=== PATIENT | female | born 1970 | race American Indian/Alaskan Native ===

== ENCOUNTER 2019-01-14 18:10 | Observation (INO) | payer SELFPAY ==
[2019-01-14 18:21] VITALS: BMI 36.8
[2019-01-14] MEDS ORDERED: Sodium Chloride 0.9% 1,000 ML IV STA (18:35)
[2019-01-14 19:09] LABS: BASO # 0.04 K/mm3 (0.0-2.0); BASO % 0.5 % (0.0-3.0); EOS # 0.3 (0.0-0.7); HEMOGLOBIN 12.8 g/dL (12.0-16.0); LYMPH # 2.9 (1.2-3.4); LYMPH % 35.4 % (22.0-35.0); MEAN CELL VOLUME 91.7 fl (80.0-105.0); MEAN CORPUSCULAR HEMOGLOBIN 30.5 pg (25.0-35.0); MEAN CORPUSCULAR HGB CONC 33.2 g/dl (31.0-37.0); MEAN PLATELET VOLUME 9.5 fl (7.0-11.0); MONO # 0.7 (0.1-0.6); MONO % 8.7 % (1.0-6.0); RBC 4.2 10^6/uL (3.5-6.1); WHITE BLOOD COUNT 8.1 10^3/uL (4.5-11.0)
[2019-01-14 19:13] LABS: INR 1.07; PARTIAL THROMBOPLASTIN TIME 31.8 Seconds (26.9-38.3); PROTHROMBIN TIME 11.9 SECONDS (9.4-12.5)
--- NOTE | 2019-01-14 19:27 | ED PDOC ---
Arrival/HPI - General Chief Complaint: Cough, Cold, Congestion Time Seen by Provider: 01/14/19 18:22 Historian: Patient - History of Present Illness Narrative History of Present Illness (Text): 48 y/o female with PMH of anxiety, PTSD, HTN and sinusitis presents to the ED c/o left sided facial and scalp paresthesias x 2 days. Beginning 2 days ago, pt began with a "tingling and fullness" that starts in the posterior left scalp and wraps around to the front of the left side of her face. Paresthesias were constant 2 days ago and have been intermittent since, and have been decreasing in frequency. She has had symptoms like this in the past on the right side of the face when she had sinus infections but they have never lasted this long. Denies weakness, leg or arm symptoms, difficulty speaking, headache, visual changes, dizziness, nausea, vomiting, abdominal pain, chest pain, palpitations, SOB, or any other associated symptoms. Past Medical History - Provider Review Nursing Documentation Reviewed: Yes Primary Care Provider: Tracy Mariscal V - Infectious Disease Hx of Infectious Diseases: None - Tetanus Immunization Tetanus Immunization: Unknown - Past Medical History Past Medical History: No Previous - Cardiac Hx Hypertension: Yes - Pulmonary Hx Respiratory Disorders: No - Neurological Hx Neurological Disorder: No - HEENT Hx HEENT Disorder: No - Renal Hx Renal Disorder: No - Endocrine/Metabolic Hx Endocrine Disorders: No - Hematological/Oncological Other/Comment: allergic to things above, gets allergy injections 2 x weekly - Integumentary Hx Dermatological Disorder: No - Musculoskeletal/Rheumatological Hx Musculoskeletal Disorders: No - Gastrointestinal Hx Gastrointestinal Disorders: No - Genitourinary/Gynecological Hx Genitourinary Disorders: No - Psychiatric Hx Psychophysiologic Disorder: No Hx Substance Use: No - Suicidal Assessment Feels Threatened In Home Enviroment: No Family/Social History - Physician Review Nursing Documentation Reviewed: Yes Family/Social History: No Known Family HX Smoking Status: Former Smoker Hx Alcohol Use: No Hx Substance Use: No Allergies/Home Meds Allergies/Adverse Reactions: Allergies cat dander Allergy (Verified 01/14/19 18:22) CONGESTION dog dander Allergy (Verified 01/14/19 18:22) CONGESTION mold Allergy (Verified 01/14/19 18:22) CONGESTION pollen extracts Allergy (Verified 01/14/19 18:22) CONGESTION dust Allergy (Uncoded 01/14/19 18:22) CONGESTION Home Medications: Home Meds Medication Instructions Recorded Confirmed Olmesartan [BenicarNf] 40 mg PO DAILY 01/15/19 01/15/19 Review of Systems - Review of Systems Constitutional: Normal. absent: Fevers Eyes: Normal. absent: Vision Changes, Photophobia ENT: Rhinorrhea, Sinus Congestion Respiratory: Normal. absent: SOB, Cough Cardiovascular: Normal. absent: Chest Pain, Palpitations, Syncope Gastrointestinal: Normal. absent: Abdominal Pain, Nausea, Vomiting Genitourinary Female: Normal. absent: Dysuria, Frequency Musculoskeletal: Normal. absent: Back Pain, Neck Pain Skin: Normal. absent: Rash, Skin Lesions Neurological: Other (left face and scalp paresthesias). absent: Headache, Dizziness, Focal Weakness, Gait Changes, Speech Changes, Facial Droop, Seizure Psychiatric: Anxiety. absent: Depression, Suicidal Ideation Physical Exam Vital Signs Reviewed: Yes Vital Signs Temp Pulse Resp BP Pulse Ox 01/14/19 18:22 98 F 68 18 165/95 H 100 Temperature: Afebrile Blood Pressure: Hypertensive Pulse: Regular Respiratory Rate: Normal Appearance: Positive for: Well-Appearing, Non-Toxic, Comfortable Pain Distress: None Mental Status: Positive for: Alert and Oriented X 3 - Systems Exam Head: Present: Atraumatic, Normocephalic Pupils: Present: PERRL Extroacular Muscles: Present: EOMI Conjunctiva: Present: Normal Ears: Present: Normal, NORMAL TM, Normal Canal Mouth: Present: Moist Mucous Membranes Pharnyx: Present: Normal. No: ERYTHEMA, EXUDATE, TONSILS ENLARGED, Other (no tongue deviation) Neck: Present: Normal Range of Motion. No: Meningeal Signs Respiratory/Chest: Present: Clear to Auscultation, Good Air Exchange. No: Respiratory Distress, Accessory Muscle Use Cardiovascular: Present: Regular Rate and Rhythm, Normal S1, S2, Peripheal Pulses Present Abdomen: No: Tenderness Back: Present: Normal Inspection. No: CVA Tenderness Upper Extremity: Present: Normal Inspection, Normal ROM, NORMAL PULSES, Neurovascularly Intact, Capillary Refill < 2s. No: Cyanosis, Edema, Temperature Abnormalties Lower Extremity: Present: Normal Inspection, NORMAL PULSES, Normal ROM, Neurovascularly Intact, Capillary Refill < 2 s. No: Edema, Temperature Abnormalties Neurological: Present: GCS=15, CN II-XII Intact, Speech Normal, Motor Func Grossly Intact (Strength 5/5 bilaterally in all extremities), Normal Sensory Function (Sensation intact and equal to light touch throughout, including face), Normal Cerebellar Funct, Gait Normal, Other ((-) Romberg (-) Facial droop) Skin: Present: Warm, Dry, Normal Color. No: Rashes, Diaphoretic, Erythematous, Laceration, Abrasion Lymphatic: No: Cervical Adenopathy Psychiatric: Present: Alert, Oriented x 3, Normal Insight, Normal Concentration, Normal Affect, Normal Mood Medical Decision Making ED Course and Treatment: Initial Plan: * Labs * UA * Head CT * CXR * EKG * IVF 19:26 Repeat BP 144/78. 19:34 CBC reviewed, unremarkable. No anemia or leukocytosis 20:04 Patient care endorsed to GUICHO Evangelista pending CMP, thyroid studies, UA, CT and XR read, reassessment and disposition. Pt updated with change in provider. Resting comfortably in stretcher with stable vital signs at this time. - Lab Interpretations Lab Results: PT 11.9 SECONDS (9.4-12.5) 01/14/19 19:00 INR 1.07 01/14/19 19:00 APTT 31.8 Seconds (26.9-38.3) 01/14/19 19:00 I have reviewed the lab results: Yes - RAD Interpretation Radiology Orders: 01/14/19 18:34 HEAD W/O CONTRAST [CT] Stat 01/14/19 19:16 CHEST PORTABLE [RAD] Stat - EKG Interpretation EKG Interpretation (Text): 01/14/19 19:54 Rate 52; Sinus bradycardia; Normal intervals and axis; No STEMI or other signs of acute ischemia. Interpreted by ED Physician: Yes Type: 12 lead EKG - Medication Orders Current Medication Orders: Sodium Chloride (Sodium Chloride 0.9%) 1,000 mls @ 999 mls/hr IV .Q1H1M STA Stop: 01/14/19 19:35 Last Admin: 01/14/19 18:57 Dose: 999 mls/hr eMAR Start Stop Document 01/14/19 18:57 SS (Rec: 01/14/19 18:58 [place] [facility] [place] Intravenous Solution Start Date 01/14/19 Start Time 18:57 End Date 05/14/19 End time 19:57 Total Infusion Time 60 - Transfer of Care Pending Labs:: CMP, thyroid studies, Mg, UA Pending Radiology Studies:: CXR, CT read Other: Reassessment and Disposition Disposition/Present on Arrival - Present on Arrival Any Indicators Present on Arrival: No History of DVT/PE: No History of Uncontrolled Diabetes: No Urinary Catheter: No History of Decub. Ulcer: No History Surgical Site Infection Following: None - Disposition Have Diagnosis and Disposition been Completed?: No Diagnosis: Facial paresthesia Disposition: HOSPITALIZED Disposition Time: 20:00 Condition: FAIR
[2019-01-14 20:30] LABS: PH,URINE 6.5 (4.7-8.0); URINE APPEARANCE CLEAR (CLEAR); URINE BILIRUBIN NEGATIVE (NEGATIVE); URINE BLOOD LARGE (NEGATIVE); URINE COLOR YELLOW (YELLOW); URINE GLUCOSE (UA) NEGATIVE (NEGATIVE); URINE LEUKOCYTE ESTERASE NEGATIVE Leu/uL (NEGATIVE); URINE PROTEIN NEGATIVE mg/dL (<30 mg/dL); URINE UROBILINOGEN 0.2 E.U./dL (<1 E.U./dL)
[2019-01-14 20:41] LABS: URINE BACTERIA FEW /hpf; URINE EPITHELIAL CELLS 0 - 2 /hpf (0-5); URINE WBC 0 - 2 /hpf (0-6)
--- NOTE | 2019-01-14 20:46 | ED PDOC ---
Physical Exam Vital Signs Reviewed: Yes Vital Signs Temp Pulse Resp BP Pulse Ox 01/14/19 19:29 144/78 01/14/19 18:22 98 F 68 18 165/95 H 100 Temperature: Afebrile Blood Pressure: Hypertensive Pulse: Regular Respiratory Rate: Normal Appearance: Positive for: Well-Appearing, Non-Toxic, Comfortable Pain Distress: None Mental Status: Positive for: Alert and Oriented X 3 - Systems Exam Head: Present: Atraumatic. No: Tenderness, Contusion, Swelling, Ecchymosis, Abrasion, Laceration Pupils: Present: PERRL Extroacular Muscles: Present: EOMI Conjunctiva: Present: Normal Ears: Present: Normal Mouth: Present: Moist Mucous Membranes, Normal Tounge. No: Drooling, Trismus Pharnyx: Present: Normal. No: ERYTHEMA, EXUDATE Nose (External): Present: Atraumatic Nose (Internal): Present: Normal Inspection Neck: Present: Normal Range of Motion, Trachea Midline Respiratory/Chest: Present: Clear to Auscultation, Good Air Exchange. No: Respiratory Distress, Accessory Muscle Use Cardiovascular: Present: Regular Rate and Rhythm, Normal S1, S2. No: Murmurs Upper Extremity: Present: Normal Inspection, Normal ROM Lower Extremity: Present: Normal Inspection, Normal ROM Neurological: Present: GCS=15, Speech Normal, Motor Func Grossly Intact, Normal Sensory Function, Gait Normal Skin: Present: Warm, Dry, Normal Color Psychiatric: Present: Alert, Oriented x 3 Medical Decision Making ED Course and Treatment: 01/14/19 20:55 Received signout from GUICHO Cross. 48-year-old female with a history of hypertension and smoking presents today with left-sided facial numbness for 2 days. Patient states that 2 days ago she woke up with left-sided facial numbness and left-sided arm numbness. Patient states she thought she may have slept on the left side of the body but it took about half the day for the left arm numbness to resolve. Patient states that the left-sided facial numbness is constant but the severity of the numbness varies throughout the day. She describes the sensation as a tingling sensation located to the left forehead left cheek and left side of the chin. Patient denies blurred vision. Patient states she has dizziness but states she does have a history of vertigo so she is unsure if it is related. Patient states she has a slight left-sided headache as well as some left-sided facial pain patient's believes that this could be related to her seasonal allergies. She denies chest pain or shortness of breath. CT head; FINDINGS: BRAIN: No acute intraparenchymal hemorrhage. No mass lesion. No CT evidence for acute territorial infarct. No midline shift or extra-axial collections. VENTRICLES: No hydrocephalus. ORBITS: The orbits are unremarkable. SINUSES AND MASTOIDS: The paranasal sinuses and mastoid air cells are clear. BONES: No fracture. SOFT TISSUES: Unremarkable. IMPRESSION: No acute intracranial abnormality. Electronically signed on January 14, 2019 8:27:56 PM EDT by: Barry Rea M.D., M.B.A., Certified By [employer] Trained MRI and CT Specialist labs reviewed; unremarkable. UA: + blood. asa given Po. all results discussed with patient in depth; pt on history and medical history will admit obs for facial numbness with resolved left arm numbness. case discussed with dr. Liu; accepts obs admission for left facial numbness. impression; facial numbness admit obs remote tele. - Lab Interpretations Lab Results: PT 11.9 SECONDS (9.4-12.5) 01/14/19 19:00 INR 1.07 01/14/19 19:00 APTT 31.8 Seconds (26.9-38.3) 01/14/19 19:00 Urine Color Yellow (YELLOW) 01/14/19 20:24 Urine Appearance Clear (CLEAR) 01/14/19 20:24 Urine pH 6.5 (4.7-8.0) 01/14/19 20:24 Ur Specific [place] 1.010 (1.005-1.035) 01/14/19 20:24 Urine Protein Negative mg/dL (<30 mg/dL) 01/14/19 20:24 Urine Glucose (UA) Negative mg/dL (NEGATIVE) 01/14/19 20:24 Urine Ketones 15 mg/dL (NEGATIVE) H 01/14/19 20:24 Urine Blood Large (NEGATIVE) H 01/14/19 20:24 Urine Nitrate Negative (NEGATIVE) 01/14/19 20:24 Urine Bilirubin Negative (NEGATIVE) 01/14/19 20:24 Urine Urobilinogen 0.2 E.U./dL (<1 E.U./dL) 01/14/19 20:24 Ur Leukocyte Esterase Negative [place]/uL (NEGATIVE) 01/14/19 20:24 - RAD Interpretation Radiology Orders: 01/14/19 18:34 HEAD W/O CONTRAST [CT] Stat 01/14/19 19:16 CHEST PORTABLE [RAD] Stat - Medication Orders Current Medication Orders: Discontinued Medications Sodium Chloride (Sodium Chloride 0.9%) 1,000 mls @ 999 mls/hr IV .Q1H1M STA Stop: 01/14/19 19:35 Last Admin: 01/14/19 18:57 Dose: 999 mls/hr eMAR Start Stop Document 01/14/19 18:57 SS (Rec: 01/14/19 18:58 [place] [facility] [id number] Intravenous Solution Start Date 01/14/19 Start Time 18:57 End Date 01/14/19 End time 19:57 Total Infusion Time 60 Disposition/Present on Arrival - Present on Arrival Any Indicators Present on Arrival: No History of DVT/PE: No History of Uncontrolled Diabetes: No Urinary Catheter: No History of Decub. Ulcer: No History Surgical Site Infection Following: None - Disposition Have Diagnosis and Disposition been Completed?: Yes Diagnosis: Facial paresthesia Disposition: HOSPITALIZED Disposition Time: 22:14 Patient Plan: Observation Patient Problems: Current Active Problems Problem Status Onset Facial paresthesia Acute Condition: FAIR Forms: Nik Talavera (French) NIHSS Scale ([place]) Time Performed: 20:53 - How Severe is the Stoke Baseline Level of Consciousness: 0=Alert LOC to Questions: 0=Both comments correct LOC to commands: 0=Obeys both correctly Best Gaze: 0=Normal Visual: 0=No visual loss Facial: 0=Normal Motor Arm - Left: 0=No drift Motor Arm - Right: 0=No drift Motor Leg - Left: 0=No drift Motor Leg - Right: 0=No drift Limb Ataxia: 0=Absent Sensory: 0=Normal Best Language: 0=No aphasia Dysarthia: 0=Normal articulation Extinction & Inattention (Neglect): 0=Normal, no object Score: 0 Risk Level: No Stroke Risk rTPA Inclusion/Exclusion - Refusal of Treatment Patient Refused Treatment: No - Inclusion Criteria for Altepase All of the below criteria for inclusion were reviewed: Yes Patient is 18 years or Older: Yes The Clinical Diagnosis of Ischemic Stroke That is Causing a Potentially Disabling Neurological Deficit: No Time of Onset is Well Established to be Less Than 270 Minute Before Treatment Would Begin: No Risk/Benefit Discussed With Patient/Family Member Present: No
[2019-01-14 21:07] LABS: ALB/GLOB RATIO 1.1 (1.1-1.8); ALBUMIN 3.9 g/dL (3.0-4.8); ALT/SGPT 11 U/L (7-56); AST/SGOT 49 U/L (14-36); BLOOD UREA NITROGEN 13 mg/dL (7-21); CALCIUM 8.6 mg/dL (8.4-10.5); GFR NON-AFRICAN AMERICAN > 60
[2019-01-14 21:24] LABS: FREE T4 1.34 ng/dL (0.78-2.19)
[2019-01-14 21:38] LABS: TROPONIN I < 0.01 ng/mL
--- NOTE | 2019-01-15 00:05 | CP.PCM.HP ---
<Breann Blackwell - Last Filed: 01/15/19 02:48> History of Present Illness - History of Present Illness History of Present Illness: HISTORY & PHYSICAL NOTE FOR HOSPITALIST SERVICE BREANN BLACKWELL PGY1 48 y/o F with PMH of vertigo, palpitations, PTSD presents to ED with complaints of L sided facial numbness and "tingling sensation" that started on sunday am and has progressively improved. She reports on sunday night, she slept the entire night on her L side and noticed L sided arm and leg numbness/tingling when she woke up that lasted for about half the day. She reports those symptoms of L arm and L leg had subsequently resolved. She didn't notice any facial droop or any weakness. She had normal strength, no dysarthria, dysphagia or headache like symptoms. No convulsions, foaming of mouth, urinary/bowel incontinence, LOC. She noticed her left sided "tingling sensation" had persisted however improved. She reports the symptoms similar to previous episodes of congestion she experiences from seasonal allergies and when "flower sanchez." She reports she had received an "allergy shot" earlier today before coming to ED for season allergies. She visits systems checkout mechanic regularly for these shots however doesn't know name of medication. She denies fevers, chills, headache, dizziness, chest pain, palpitations, shortness of breath, nausea, vomiting, constipation, diarrhea, dysuria, hematuria. PMH: vertigo, palpitations, PTSD (from passing of mother/father) All: seasonal allergies (gets "allergy shots" regularly) PSH: Denies SH: Smoked 1/2 pack cigarettes x 20+ years. Currently smokes e-cigarettes. Occasional ETOH use. No illicit drug abuse Hosp: denies recent FH: M: @72y/o: cardiac arrest. ESRD on HD. F: : cardiac arrest @74y/o Meds: Blood pressure medication, doesn't recall name PMD: Dr. Tracy Mariscal Cardio: Dr. Ira Lucas (for palpitations. Hx of holter monitor, all tests negative per patient) Photo Stylist: Dr. Lázaro David Pharmacy: [address] Present on Admission - Present on Admission Any Indicators Present on Admission: No Review of Systems - Review of Systems Review of Systems: per HPI Past Patient History - Infectious Disease Hx of Infectious Diseases: None - Tetanus Immunizations Tetanus Immunization: Unknown - Past Social History Smoking Status: Former Smoker - CARDIAC Hx Hypertension: Yes - PULMONARY Hx Respiratory Disorders: No - NEUROLOGICAL Hx Neurological Disorder: No - HEENT Hx HEENT Problems: No - RENAL Hx Chronic Kidney Disease: No - ENDOCRINE/METABOLIC Hx Endocrine Disorders: No - INTEGUMENTARY Hx Dermatological Problems: No - MUSCULOSKELETAL/RHEUMATOLOGICAL Hx Musculoskeletal Disorders: No - GASTROINTESTINAL Hx Gastrointestinal Disorders: No - GENITOURINARY/GYNECOLOGICAL Hx Genitourinary Disorders: No - PSYCHIATRIC Hx Psychophysiologic Disorder: No Hx Substance Use: No - SURGICAL HISTORY Hx Surgeries: No Meds Allergies/Adverse Reactions: Allergies Allergy/AdvReac Type Severity Reaction Status Date / Time cat dander Allergy CONGESTION Verified 01/14/19 18:22 dog dander Allergy CONGESTION Verified 01/14/19 18:22 mold Allergy CONGESTION Verified 01/14/19 18:22 pollen extracts Allergy CONGESTION Verified 01/14/19 18:22 dust Allergy CONGESTION Uncoded 01/14/19 18:22 Physical Exam - Constitutional Appears: Well, Non-toxic, No Acute Distress - Head Exam Head Exam: NORMAL INSPECTION, NORMOCEPHALIC - Eye Exam Eye Exam: EOMI, Normal appearance - ENT Exam ENT Exam: Mucous Membranes Moist, Normal Exam - Neck Exam Neck exam: Positive for: Normal Inspection - Respiratory Exam Respiratory Exam: Clear to Auscultation Bilateral, NORMAL BREATHING PATTERN - Cardiovascular Exam Cardiovascular Exam: Bradycardia, +S1, +S2 - GI/Abdominal Exam GI & Abdominal Exam: Soft. absent: Tenderness - Extremities Exam Extremities exam: Positive for: normal inspection. Negative for: calf tenderness - Back Exam Back exam: NORMAL INSPECTION - Neurological Exam Neurological exam: Alert, CN II-XII Intact, Oriented x3 Additional comments: No dysarthria No facial asymmetry CN2-12 intact Sensation/strength intact bilateral upper/lower extremities. No focal neurological deficits - Psychiatric Exam Psychiatric exam: Normal Affect, Normal Mood - Skin Skin Exam: Dry, Intact, Warm Results - Vital Signs Recent Vital Signs: Last Vital Signs Temp 98 F 01/14/19 18:22 Pulse 60 01/14/19 22:32 Resp 18 01/14/19 22:32 BP 146/76 01/14/19 22:32 Pulse Ox 98 01/14/19 22:32 - Labs Result Diagrams: 01/14/19 19:00 01/14/19 20:01 Labs: Laboratory Results - last 24 hr 01/14/19 01/14/19 01/14/19 19:00 19:00 20:01 WBC 8.1 RBC 4.20 Hgb 12.8 Hct 38.5 MCV 91.7 MCH 30.5 MCHC 33.2 RDW 14.0 Plt Count 421 MPV 9.5 Neut % (Auto) 51.4 Lymph % (Auto) 35.4 H [place] % (Auto) 8.7 H Eos % (Auto) 4.0 Baso % (Auto) 0.5 Lymph # (Auto) 2.9 [place] # (Auto) 0.7 H Eos # (Auto) 0.3 Baso # (Auto) 0.04 Absolute Neuts (auto) 4.17 PT 11.9 INR 1.07 APTT 31.8 Sodium 139 Potassium 3.9 Chloride 107 Carbon Dioxide 26 Anion Gap 10 BUN 13 Creatinine 0.7 Est GFR ( Amer) > 60 Est GFR (Non-Af Amer) > 60 Random Glucose 87 Calcium 8.6 Magnesium 2.0 Total Bilirubin 0.8 AST 49 H ALT 11 Alkaline Phosphatase 67 Troponin I < 0.01 Total Protein 7.6 Albumin 3.9 Globulin 3.7 Albumin/Globulin Ratio 1.1 Free T4 TSH 3rd Generation Urine Color Urine Appearance Urine pH Ur Specific [place] Urine Protein Urine Glucose (UA) Urine Ketones Urine Blood Urine Nitrate Urine Bilirubin Urine Urobilinogen Ur Leukocyte Esterase Urine RBC Urine WBC Ur Epithelial Cells Urine Bacteria 01/14/19 01/14/19 20:01 20:24 WBC RBC Hgb Hct MCV MCH MCHC RDW Plt Count MPV Neut % (Auto) Lymph % (Auto) [place] % (Auto) Eos % (Auto) Baso % (Auto) Lymph # (Auto) [place] # (Auto) Eos # (Auto) Baso # (Auto) Absolute Neuts (auto) PT INR APTT Sodium Potassium Chloride Carbon Dioxide Anion Gap BUN Creatinine Est GFR ( Amer) Est GFR (Non-Af Amer) Random Glucose Calcium Magnesium Total Bilirubin AST ALT Alkaline Phosphatase Troponin I Total Protein Albumin Globulin Albumin/Globulin Ratio Free T4 1.34 TSH 3rd Generation 1.91 Urine Color Yellow Urine Appearance Clear Urine pH 6.5 Ur Specific [place] 1.010 Urine Protein Negative Urine Glucose (UA) Negative Urine Ketones 15 H Urine Blood Large H Urine Nitrate Negative Urine Bilirubin Negative Urine Urobilinogen 0.2 Ur Leukocyte Esterase Negative Urine RBC 10 - 15 H Urine WBC 0 - 2 Ur Epithelial Cells 0 - 2 Urine Bacteria Few Assessment & Plan - Assessment and Plan (Free Text) Assessment: 48 y/o F PMH of vertigo, palpitations, PTSD, seasonal allergies admitted for L sided facial numbness/paresthesias Plan: L sided facial numbness/paresthesia No focal deficits on physical exam. Code stroke evaluation in ED was negative. CTH 01/14: negative. Given aspirin 325mg in ED. Will continue ASA 81 daily Will f/u MRI w/o contrast in am Neurology consulted, will appreciate recs Continue neuro checks, fall precautions Will f/u TSH/FT4, A1c, lipid panel, UDS HTN Will confirm home medication in am. Pt does not recall name of medication DVT PPx: SCD Case reviewed with attending physician, Dr. Alexa Blackwell PGY1 <Lakisha Liu - Last Filed: 01/15/19 03:02> Results - Vital Signs Recent Vital Signs: Last Vital Signs Temp 98 F 01/14/19 18:22 Pulse 54 L 01/14/19 22:47 Resp 20 01/14/19 22:47 BP 146/76 01/14/19 22:32 Pulse Ox 98 01/14/19 22:32 - Labs Result Diagrams: 01/14/19 19:00 01/14/19 20:01 Labs: Laboratory Results - last 24 hr 01/14/19 01/14/19 01/14/19 19:00 19:00 20:01 WBC 8.1 RBC 4.20 Hgb 12.8 Hct 38.5 MCV 91.7 MCH 30.5 MCHC 33.2 RDW 14.0 Plt Count 421 MPV 9.5 Neut % (Auto) 51.4 Lymph % (Auto) 35.4 H [place] % (Auto) 8.7 H Eos % (Auto) 4.0 Baso % (Auto) 0.5 Lymph # (Auto) 2.9 [place] # (Auto) 0.7 H Eos # (Auto) 0.3 Baso # (Auto) 0.04 Absolute Neuts (auto) 4.17 PT 11.9 INR 1.07 APTT 31.8 Sodium 139 Potassium 3.9 Chloride 107 Carbon Dioxide 26 Anion Gap 10 BUN 13 Creatinine 0.7 Est GFR ( Amer) > 60 Est GFR (Non-Af Amer) > 60 Random Glucose 87 Calcium 8.6 Magnesium 2.0 Total Bilirubin 0.8 AST 49 H ALT 11 Alkaline Phosphatase 67 Troponin I < 0.01 Total Protein 7.6 Albumin 3.9 Globulin 3.7 Albumin/Globulin Ratio 1.1 Triglycerides Cholesterol LDL Cholesterol Direct HDL Cholesterol Free T4 TSH 3rd Generation Urine Color Urine Appearance Urine pH Ur Specific [place] Urine Protein Urine Glucose (UA) Urine Ketones Urine Blood Urine Nitrate Urine Bilirubin Urine Urobilinogen Ur Leukocyte Esterase Urine RBC Urine WBC Ur Epithelial Cells Urine Bacteria 01/14/19 01/14/19 01/14/19 20:01 20:01 20:24 WBC RBC Hgb Hct MCV MCH MCHC RDW Plt Count MPV Neut % (Auto) Lymph % (Auto) [place] % (Auto) Eos % (Auto) Baso % (Auto) Lymph # (Auto) [place] # (Auto) Eos # (Auto) Baso # (Auto) Absolute Neuts (auto) PT INR APTT Sodium Potassium Chloride Carbon Dioxide Anion Gap BUN Creatinine Est GFR ( Amer) Est GFR (Non-Af Amer) Random Glucose Calcium Magnesium Total Bilirubin AST ALT Alkaline Phosphatase Troponin I Total Protein Albumin Globulin Albumin/Globulin Ratio Triglycerides 66 Cholesterol 181 LDL Cholesterol Direct 90 HDL Cholesterol 64 H Free T4 1.34 TSH 3rd Generation 1.91 Urine Color Yellow Urine Appearance Clear Urine pH 6.5 Ur Specific [place] 1.010 Urine Protein Negative Urine Glucose (UA) Negative Urine Ketones 15 H Urine Blood Large H Urine Nitrate Negative Urine Bilirubin Negative Urine Urobilinogen 0.2 Ur Leukocyte Esterase Negative Urine RBC 10 - 15 H Urine WBC 0 - 2 Ur Epithelial Cells 0 - 2 Urine Bacteria Few Attending/Attestation - Attestation I have personally seen and examined this patient.: Yes I have fully participated in the care of the patient.: Yes I have reviewed all pertinent clinical information: Yes Notes (Text): Pt seen with the resident. Case discussed in detail Agree with documentation,assessment and plan of treatment. 01/15/19 02:56
[2019-01-15 00:35] LABS: HDL CHOLESTEROL 64 mg/dL (29-60)
[2019-01-15 00:46] LABS: LDL CHOLESTEROL 90 mg/dL (0-129)
[2019-01-15 06:54] LABS: FREE T4 1.21 ng/dL (0.78-2.19)
--- NOTE | 2019-01-15 09:17 | RAD ---
HISTORY: paresthesias COMPARISON: None available. TECHNIQUE: Chest, one view. FINDINGS: Examination limited by habitus and hypoinflation. LUNGS: Hypoinflation. No focal consolidation. Please note that chest x-ray has limited sensitivity for the detection of pulmonary masses. PLEURA: No significant pleural effusion identified. No definite pneumothorax . CARDIOVASCULAR: The cardiomediastinal silhouette appears within normal limits of size. No significant atherosclerotic calcification present. OSSEOUS STRUCTURES: No acute osseous abnormality identified. VISUALIZED UPPER ABDOMEN: Mild elevation of the right hemidiaphragm. OTHER FINDINGS: None. IMPRESSION: Hypoinflation. Mild elevation of the right hemidiaphragm. Preliminary impression was provided by [employer].
--- NOTE | 2019-01-15 09:20 | CT ---
Date of service: 01/14/2019 PROCEDURE: CT HEAD WITHOUT CONTRAST. HISTORY: left sided facial paresthesias COMPARISON: Noncontrast head CT performed 12/08/15 TECHNIQUE: Axial computed tomography images were obtained through the head/brain without intravenous contrast. Radiation dose: Total exam DLP = 899.48 mGy-cm. This CT exam was performed using one or more of the following dose reduction techniques: Automated exposure control, adjustment of the mA and/or kV according to patient size, and/or use of iterative reconstruction technique. FINDINGS: HEMORRHAGE: No intracranial hemorrhage. BRAIN: No mass effect or edema. The garland-white matter differentiation appears intact. Please note that MRI with diffusion imaging is more sensitive in the detection of acute ischemic event. VENTRICLES: No hydrocephalus. CALVARIUM: Unremarkable. PARANASAL SINUSES: Unremarkable as visualized. No significant inflammatory changes. MASTOID AIR CELLS: Unremarkable as visualized. No inflammatory changes. OTHER FINDINGS: None. IMPRESSION: No acute intracranial pathology identified. Preliminary impression was provided by [employer].
[2019-01-15 11:29] LABS: FOLATE 8.5 ng/mL
--- NOTE | 2019-01-15 12:27 | CP.PCM.CON ---
History of Present Illness - History of Present Illness History of Present Illness: Neurology Consultation Note: Consult requested by Dr. Casillas The patient is a 48-year-old woman with a past medical history of anxiety and HTN, who slept on her left side, woke up with left side numbness that then resolved completely. She was admitted for further work-up. Neurology was consulted for possible TIA. The patient does not have any current complaints. CT head was normal. Review of Systems - Constitutional Constitutional: As Per HPI - EENT Eyes: absent: As Per HPI, Blind Spots, Blurred Vision, Change in Vision, Decreased Night Vision, Diplopia, Discharge, Dry Eye, Exophthalmos, Floaters, Irritation, Itchy Eyes, Loss of Peripheral Vision, Pain, Photophobia, Requires Corrective Lenses, Sees Flashes, Spots in Vision, Tunnel Vision, Other Visual Disturbances, Loss of Vision, Other Ears: absent: As Per HPI, Decreased Hearing, Ear Discharge, Ear Pain, Tinnitus, Abnormal Hearing, Disequilibrium, Dizziness, Other Nose/Mouth/Throat: absent: As Per HPI, Epistaxis, Nasal Congestion, Nasal Discharge, Nasal Obstruction, Nasal Trauma, Nose Pain, Post Nasal Drip, Sinus Pain, Sinus Pressure, Bleeding Gums, Change in Voice, Dental Pain, Dry Mouth, Dysphagia, Halitosis, Hoarsness, Lip Swelling, Mouth Lesions, Mouth Pain, Odynophagia, Sore Throat, Throat Swelling, Tongue Swelling, Facial Pain, Neck Pain, Neck Mass, Other - Respiratory Respiratory: absent: As Per HPI, Cough, Dyspnea, Hemoptysis, Dyspnea on Exertion, Wheezing, Snoring, Stridor, Pain on Inspiration, Chest Congestion, Excessive Mucous Production, Change in Mucous Color, Pain with Coughing, Other - Musculoskeletal Musculoskeletal: As Per HPI - Neurological Neurological: As Per HPI - Psychiatric Psychiatric: As Per HPI - Endocrine Endocrine: absent: As Per HPI, Change in Body Appearance, Change in Libido, Cold Intolorance, Deepening of Voice, Excessive Sweating, Fatigue, Flushing, Heat Intolorance, Increase in Ring/Shoe/Hat Size, Palpitations, Polydipsia, Polyphagia, Polyuria, Other - Hematologic/Lymphatic Hematologic: absent: As Per HPI, Easy Bleeding, Easy Bruising, Lymphadenopathy, Other Past Patient History - Infectious Disease Hx of Infectious Diseases: None - Tetanus Immunizations Tetanus Immunization: Unknown - Past Social History Smoking Status: Former Smoker - CARDIAC Hx Hypertension: Yes - PULMONARY Hx Respiratory Disorders: No - NEUROLOGICAL Hx Neurological Disorder: No - HEENT Hx HEENT Problems: No - RENAL Hx Chronic Kidney Disease: No - ENDOCRINE/METABOLIC Hx Endocrine Disorders: No - HEMATOLOGICAL/ONCOLOGICAL Other/Comment: allergic to things above, gets allergy injections 2 x weekly - INTEGUMENTARY Hx Dermatological Problems: No - MUSCULOSKELETAL/RHEUMATOLOGICAL Hx Musculoskeletal Disorders: No - GASTROINTESTINAL Hx Gastrointestinal Disorders: No - GENITOURINARY/GYNECOLOGICAL Hx Genitourinary Disorders: No - PSYCHIATRIC Hx Psychophysiologic Disorder: No Hx Substance Use: No - SURGICAL HISTORY Hx Surgeries: No Meds Home Medications: Home Medication List Medication Instructions Recorded Confirmed Type Aspirin [Ecotrin] 81 mg PO DAILY tabec 01/15/19 Rx Allergies/Adverse Reactions: Allergies Allergy/AdvReac Type Severity Reaction Status Date / Time cat dander Allergy CONGESTION Verified 01/14/19 18:22 dog dander Allergy CONGESTION Verified 01/14/19 18:22 mold Allergy CONGESTION Verified 01/14/19 18:22 pollen extracts Allergy CONGESTION Verified 01/14/19 18:22 dust Allergy CONGESTION Uncoded 01/14/19 18:22 - Medications Medications: Current Medications Aspirin (Ecotrin) 81 mg PO DAILY [facility] Last Admin: 01/15/19 09:50 Dose: 81 mg Famotidine (Pepcid) 20 mg PO 1000,2200 [facility] Last Admin: 01/15/19 09:50 Dose: 20 mg Lorazepam (Ativan) 1 mg PO ONCE PRN; Protocol PRN Reason: Other Stop: 01/15/19 14:00 Physical Exam - Constitutional Appears: Well - Head Exam Head Exam: ATRAUMATIC, NORMAL INSPECTION, NORMOCEPHALIC - Eye Exam Eye Exam: EOMI, Normal appearance, PERRL Pupil Exam: NORMAL ACCOMODATION, PERRL - ENT Exam ENT Exam: Mucous Membranes Moist, Normal Exam - Neck Exam Neck exam: Positive for: Normal Inspection - Respiratory Exam Respiratory Exam: Clear to Auscultation Bilateral, NORMAL BREATHING PATTERN - Cardiovascular Exam Cardiovascular Exam: REGULAR RHYTHM, +S1, +S2 - GI/Abdominal Exam GI & Abdominal Exam: Normal Bowel Sounds, Soft. absent: Tenderness - Extremities Exam Extremities exam: Positive for: normal inspection - Back Exam Back exam: NORMAL INSPECTION - Neurological Exam Neurological exam: Alert, CN II-XII Intact, Normal Gait, Oriented x3, Reflexes Normal - Psychiatric Exam Psychiatric exam: Normal Affect, Normal Mood - Skin Skin Exam: Dry, Intact, Normal Color, Warm Results - Vital Signs Recent Vital Signs: Last Vital Signs Temp 98.3 F 01/15/19 08:21 Pulse 52 L 01/15/19 10:00 Resp 20 01/15/19 08:21 BP 124/78 01/15/19 08:21 Pulse Ox 98 01/15/19 08:21 - Labs Result Diagrams: 01/14/19 19:00 01/14/19 20:01 Labs: Laboratory Results - last 24 hr 01/14/19 01/14/19 01/14/19 19:00 19:00 19:00 WBC 8.1 RBC 4.20 Hgb 12.8 Hct 38.5 MCV 91.7 MCH 30.5 MCHC 33.2 RDW 14.0 Plt Count 421 MPV 9.5 Neut % (Auto) 51.4 Lymph % (Auto) 35.4 H [place] % (Auto) 8.7 H Eos % (Auto) 4.0 Baso % (Auto) 0.5 Lymph # (Auto) 2.9 [place] # (Auto) 0.7 H Eos # (Auto) 0.3 Baso # (Auto) 0.04 Absolute Neuts (auto) 4.17 PT 11.9 INR 1.07 APTT 31.8 Sodium Potassium Chloride Carbon Dioxide Anion Gap BUN Creatinine Est GFR ( Amer) Est GFR (Non-Af Amer) Random Glucose Hemoglobin A1c 5.1 Calcium Magnesium Total Bilirubin AST ALT Alkaline Phosphatase Troponin I Total Protein Albumin Globulin Albumin/Globulin Ratio Triglycerides Cholesterol LDL Cholesterol Direct HDL Cholesterol Vitamin B12 Folate Free T4 TSH 3rd Generation Urine Color Urine Appearance Urine pH Ur Specific [place] Urine Protein Urine Glucose (UA) Urine Ketones Urine Blood Urine Nitrate Urine Bilirubin Urine Urobilinogen Ur Leukocyte Esterase Urine RBC Urine WBC Ur Epithelial Cells Urine Bacteria 01/14/19 01/14/19 01/14/19 20:01 20:01 20:01 WBC RBC Hgb Hct MCV MCH MCHC RDW Plt Count MPV Neut % (Auto) Lymph % (Auto) [place] % (Auto) Eos % (Auto) Baso % (Auto) Lymph # (Auto) [place] # (Auto) Eos # (Auto) Baso # (Auto) Absolute Neuts (auto) PT INR APTT Sodium 139 Potassium 3.9 Chloride 107 Carbon Dioxide 26 Anion Gap 10 BUN 13 Creatinine 0.7 Est GFR ( Amer) > 60 Est GFR (Non-Af Amer) > 60 Random Glucose 87 Hemoglobin A1c Calcium 8.6 Magnesium 2.0 Total Bilirubin 0.8 AST 49 H ALT 11 Alkaline Phosphatase 67 Troponin I < 0.01 Total Protein 7.6 Albumin 3.9 Globulin 3.7 Albumin/Globulin Ratio 1.1 Triglycerides 66 Cholesterol 181 LDL Cholesterol Direct 90 HDL Cholesterol 64 H Vitamin B12 Folate Free T4 1.34 TSH 3rd Generation 1.91 Urine Color Urine Appearance Urine pH Ur Specific [place] Urine Protein Urine Glucose (UA) Urine Ketones Urine Blood Urine Nitrate Urine Bilirubin Urine Urobilinogen Ur Leukocyte Esterase Urine RBC Urine WBC Ur Epithelial Cells Urine Bacteria 01/14/19 01/15/19 01/15/19 20:24 05:30 05:30 WBC RBC Hgb Hct MCV MCH MCHC RDW Plt Count MPV Neut % (Auto) Lymph % (Auto) [place] % (Auto) Eos % (Auto) Baso % (Auto) Lymph # (Auto) [place] # (Auto) Eos # (Auto) Baso # (Auto) Absolute Neuts (auto) PT INR APTT Sodium Potassium Chloride Carbon Dioxide Anion Gap BUN Creatinine Est GFR ( Amer) Est GFR (Non-Af Amer) Random Glucose Hemoglobin A1c Calcium Magnesium Total Bilirubin AST ALT Alkaline Phosphatase Troponin I Total Protein Albumin Globulin Albumin/Globulin Ratio Triglycerides Cholesterol LDL Cholesterol Direct HDL Cholesterol Vitamin B12 400 Folate 8.5 Free T4 1.21 TSH 3rd Generation 2.19 Urine Color Yellow Urine Appearance Clear Urine pH 6.5 Ur Specific [place] 1.010 Urine Protein Negative Urine Glucose (UA) Negative Urine Ketones 15 H Urine Blood Large H Urine Nitrate Negative Urine Bilirubin Negative Urine Urobilinogen 0.2 Ur Leukocyte Esterase Negative Urine RBC 10 - 15 H Urine WBC 0 - 2 Ur Epithelial Cells 0 - 2 Urine Bacteria Few Assessment & Plan (1) Facial paresthesia Assessment and Plan: Unlikely to be a TIA, but it is possible. The patient does not really have risk factors. Based on ABCD2 criteria, she has a score of 2 and further testing such as MRI brain without contrast, MRA head/neck without contrast and echocardiogram can be done as an outpatient. Continue aspirin 81 mg daily. Thank you for this consultation. Status: Acute
--- NOTE | 2019-01-15 14:20 | MRI ---
Date of service: 01/15/2019 PROCEDURE: MRI BRAIN WITHOUT CONTRAST HISTORY: facial tingling COMPARISON: None available. TECHNIQUE: Multiplanar, multisequence MR images of the brain were obtained without intravenous contrast enhancement. FINDINGS: HEMORRHAGE: None DWI: No evidence of an acute or early subacute infarction. BRAIN PARENCHYMA: No mass effect or edema. No atrophy or chronic microvascular ischemic changes. VENTRICLES: Unremarkable. No hydrocephalus. CRANIUM: Unremarkable. ORBITS: Grossly unremarkable. PARANASAL SINUSES/MASTOIDS: Clear VASCULAR SYSTEM: Skull base flow voids intact. OTHER FINDINGS: None. IMPRESSION: Unremarkable non contrast enhanced MRI of the brain.
--- NOTE | 2019-01-15 14:30 | CP.PCM.DIS ---
<NimeshDustin jimenez - Last Filed: 01/15/19 17:06> Provider - Provider Date of Admission: 01/14/19 22:29 Attending physician: Sarai Casillas MD Consults: 01/15/19 00:11 Neurology Consult Routine Comment: Consulting Provider: Candido Best Consulting Physician: Candido Best Reason for Consult: L sided facial numbness Time Spent in preparation of Discharge (in minutes): 50 Hospital Course - Lab Results Lab Results: Most Recent Lab Values WBC 8.1 10^3/uL (4.5-11.0) 01/14/19 19:00 RBC 4.20 10^6/uL (3.5-6.1) 01/14/19 19:00 Hgb 12.8 g/dL (12.0-16.0) 01/14/19 19:00 Hct 38.5 % (36.0-48.0) 01/14/19 19:00 MCV 91.7 fl (80.0-105.0) 01/14/19 19:00 MCH 30.5 pg (25.0-35.0) 01/14/19 19:00 MCHC 33.2 g/dl (31.0-37.0) 01/14/19 19:00 RDW 14.0 % (11.5-14.5) 01/14/19 19:00 Plt Count 421 10^3/uL (120.0-450.0) 01/14/19 19:00 MPV 9.5 fl (7.0-11.0) 01/14/19 19:00 Neut % (Auto) 51.4 % (50.0-68.0) 01/14/19 19:00 Lymph % (Auto) 35.4 % (22.0-35.0) H 01/14/19 19:00 Reeves % (Auto) 8.7 % (1.0-6.0) H 01/14/19 19:00 Eos % (Auto) 4.0 % (1.5-5.0) 01/14/19 19:00 Baso % (Auto) 0.5 % (0.0-3.0) 01/14/19 19:00 Lymph # (Auto) 2.9 (1.2-3.4) 01/14/19 19:00 Reeves # (Auto) 0.7 (0.1-0.6) H 01/14/19 19:00 Eos # (Auto) 0.3 (0.0-0.7) 01/14/19 19:00 Baso # (Auto) 0.04 K/mm3 (0.0-2.0) 01/14/19 19:00 Absolute Neuts (auto) 4.17 (1.4-6.5) 01/14/19 19:00 PT 11.9 SECONDS (9.4-12.5) 01/14/19 19:00 INR 1.07 01/14/19 19:00 APTT 31.8 Seconds (26.9-38.3) 01/14/19 19:00 Sodium 139 mmol/L (132-148) 01/14/19 20:01 Potassium 3.9 mmol/L (3.6-5.0) 01/14/19 20:01 Chloride 107 mmol/L (98-107) 01/14/19 20:01 Carbon Dioxide 26 mmol/L (21-33) 01/14/19 20:01 Anion Gap 10 (10-20) 01/14/19 20:01 BUN 13 mg/dL (7-21) 01/14/19 20:01 Creatinine 0.7 mg/dl (0.7-1.2) 01/14/19 20:01 Est GFR ( Amer) > 60 01/14/19 20:01 Est GFR (Non-Af Amer) > 60 01/14/19 20:01 Random Glucose 87 mg/dL (70-110) 01/14/19 20:01 Hemoglobin A1c 5.1 % (4.2-6.5) 01/14/19 19:00 Calcium 8.6 mg/dL (8.4-10.5) 01/14/19 20:01 Magnesium 2.0 mg/dL (1.7-2.2) 01/14/19 20:01 Total Bilirubin 0.8 mg/dL (0.2-1.3) 01/14/19 20:01 AST 49 U/L (14-36) H 01/14/19 20:01 ALT 11 U/L (7-56) 01/14/19 20:01 Alkaline Phosphatase 67 U/L (38-126) 01/14/19 20:01 Troponin I < 0.01 ng/mL 01/14/19 20:01 Total Protein 7.6 g/dL (5.8-8.3) 01/14/19 20:01 Albumin 3.9 g/dL (3.0-4.8) 01/14/19 20:01 Globulin 3.7 gm/dL 01/14/19 20:01 Albumin/Globulin Ratio 1.1 (1.1-1.8) 01/14/19 20:01 Triglycerides 66 mg/dL (35-160) 01/14/19 20:01 Cholesterol 181 mg/dL (130-200) 01/14/19 20:01 LDL Cholesterol Direct 90 mg/dL (0-129) 01/14/19 20:01 HDL Cholesterol 64 mg/dL (29-60) H 01/14/19 20:01 Vitamin B12 400 pg/mL (239-931) 01/15/19 05:30 Folate 8.5 ng/mL 01/15/19 05:30 Free T4 1.21 ng/dL (0.78-2.19) 01/15/19 05:30 TSH 3rd Generation 2.19 mIU/mL (0.46-4.68) 01/15/19 05:30 Urine Color Yellow (YELLOW) 01/14/19 20:24 Urine Appearance Clear (CLEAR) 01/14/19 20:24 Urine pH 6.5 (4.7-8.0) 01/14/19 20:24 Ur Specific [place] 1.010 (1.005-1.035) 01/14/19 20:24 Urine Protein Negative mg/dL (<30 mg/dL) 01/14/19 20:24 Urine Glucose (UA) Negative mg/dL (NEGATIVE) 01/14/19 20:24 Urine Ketones 15 mg/dL (NEGATIVE) H 01/14/19 20:24 Urine Blood Large (NEGATIVE) H 01/14/19 20:24 Urine Nitrate Negative (NEGATIVE) 01/14/19 20:24 Urine Bilirubin Negative (NEGATIVE) 01/14/19 20:24 Urine Urobilinogen 0.2 E.U./dL (<1 E.U./dL) 01/14/19 20:24 Ur Leukocyte Esterase Negative Paco/uL (NEGATIVE) 01/14/19 20:24 Urine RBC 10 - 15 /hpf (0-2) H 01/14/19 20:24 Urine WBC 0 - 2 /hpf (0-6) 01/14/19 20:24 Ur Epithelial Cells 0 - 2 /hpf (0-5) 01/14/19 20:24 Urine Bacteria Few /hpf (NONE) 01/14/19 20:24 - Hospital Course Hospital Course: 48 y/o F with PMH of vertigo, palpitations, PTSD presents to ED with complaints of L sided facial numbness and tingling sensation x2 days. No focal deficits on physical exam and Code stroke evaluation in ED was negative. Patient admitted for further work up. CT head was negative for ICH. PT/INR normal. Patient refused to take aspirin 325 as she reported allergy to it. Neurology consulted, Dr Best, he recommended MRI of the brain that yields no abnormalities. As per neurology, It was unlikely to be a TIA, but it is possible. The patient does not really have risk factors. Based on ABCD2 criteria, she has a score of 2 and further testing such as MRI brain without contrast, MRA head/neck without contrast and echocardiogram can be done as an outpatient. On discharge, patient is hemodynamically stable, afebrile, no focal neurological symptoms, tingling/numbness improved. She is clinically stable for dischage home. Neurology recommendations relied to the patient and she was agreeable. Discharge Exam - Head Exam Head Exam: ATRAUMATIC, NORMAL INSPECTION, NORMOCEPHALIC - Eye Exam Eye Exam: EOMI, Normal appearance, PERRL Pupil Exam: NORMAL ACCOMODATION, PERRL - ENT Exam ENT Exam: Mucous Membranes Moist, Normal Exam, Normal Oropharynx - Respiratory Exam Respiratory Exam: NORMAL BREATHING PATTERN. absent: Rales, Rhonchi - Cardiovascular Exam Cardiovascular Exam: +S1, +S2. absent: Gallop, RRR - GI/Abdominal Exam GI & Abdominal Exam: Normal Bowel Sounds, Soft. absent: Guarding, Mass, Tenderness - Extremities Exam Extremities exam: full ROM, normal capillary refill, pedal pulses present - Back Exam Back exam: NORMAL INSPECTION - Neurological Exam Neurological exam: Alert, CN II-XII Intact, Oriented x3, Reflexes Normal - Psychiatric Exam Psychiatric exam: Normal Affect, Normal Mood - Skin Skin Exam: Dry, Intact, Normal Color, Warm Discharge Plan - Follow Up Plan Condition: FAIR Disposition: HOME/ ROUTINE Instructions: Paresthesias (DC) Additional Instructions: -Please follow up with your PMD Dr Mariscal within 2-3 days of discharge -Please follow up with your alumni secretary Dr De Guzman within 1 week of discharge -Please follow up with your patient registration clerk Dr David within 1 week of discharge -Please follow up with your neurologist Dr Best within 1 week of discharge -MRA head/neck without contrast and echocardiogram can be done as an outpatient as recommended by Dr Best -Please resume your home medications as prescribed -Please go to the nearest emergency department if your symptoms reoccur Referrals: Brandon Metz MD [Medical Doctor] - Lázaro Recio MD [Medical Doctor] - Tracy Mariscal DO [Doctor Osteopathy] - Candido Best MD [Staff Provider] - <Sarai Casillas - Last Filed: 01/16/19 16:58> Provider - Provider Date of Admission: 01/14/19 22:29 Attending physician: Sarai Casillas MD Consults: 01/15/19 00:11 Neurology Consult Routine Comment: Consulting Provider: Candido Best Consulting Physician: Candido Best Reason for Consult: L sided facial numbness Hospital Course - Lab Results Lab Results: Most Recent Lab Values WBC 8.1 10^3/uL (4.5-11.0) 01/14/19 19:00 RBC 4.20 10^6/uL (3.5-6.1) 01/14/19 19:00 Hgb 12.8 g/dL (12.0-16.0) 01/14/19 19:00 Hct 38.5 % (36.0-48.0) 01/14/19 19:00 MCV 91.7 fl (80.0-105.0) 01/14/19 19:00 MCH 30.5 pg (25.0-35.0) 01/14/19 19:00 MCHC 33.2 g/dl (31.0-37.0) 01/14/19 19:00 RDW 14.0 % (11.5-14.5) 01/14/19 19:00 Plt Count 421 10^3/uL (120.0-450.0) 01/14/19 19:00 MPV 9.5 fl (7.0-11.0) 01/14/19 19:00 Neut % (Auto) 51.4 % (50.0-68.0) 01/14/19 19:00 Lymph % (Auto) 35.4 % (22.0-35.0) H 01/14/19 19:00 Reeves % (Auto) 8.7 % (1.0-6.0) H 01/14/19 19:00 Eos % (Auto) 4.0 % (1.5-5.0) 01/14/19 19:00 Baso % (Auto) 0.5 % (0.0-3.0) 01/14/19 19:00 Lymph # (Auto) 2.9 (1.2-3.4) 01/14/19 19:00 Reeves # (Auto) 0.7 (0.1-0.6) H 01/14/19 19:00 Eos # (Auto) 0.3 (0.0-0.7) 01/14/19 19:00 Baso # (Auto) 0.04 K/mm3 (0.0-2.0) 01/14/19 19:00 Absolute Neuts (auto) 4.17 (1.4-6.5) 01/14/19 19:00 PT 11.9 SECONDS (9.4-12.5) 01/14/19 19:00 INR 1.07 01/14/19 19:00 APTT 31.8 Seconds (26.9-38.3) 01/14/19 19:00 Sodium 139 mmol/L (132-148) 01/14/19 20:01 Potassium 3.9 mmol/L (3.6-5.0) 01/14/19 20:01 Chloride 107 mmol/L (98-107) 01/14/19 20:01 Carbon Dioxide 26 mmol/L (21-33) 01/14/19 20:01 Anion Gap 10 (10-20) 01/14/19 20:01 BUN 13 mg/dL (7-21) 01/14/19 20:01 Creatinine 0.7 mg/dl (0.7-1.2) 01/14/19 20:01 Est GFR ( Amer) > 60 01/14/19 20:01 Est GFR (Non-Af Amer) > 60 01/14/19 20:01 Random Glucose 87 mg/dL (70-110) 01/14/19 20:01 Hemoglobin A1c 5.1 % (4.2-6.5) 01/14/19 19:00 Calcium 8.6 mg/dL (8.4-10.5) 01/14/19 20:01 Magnesium 2.0 mg/dL (1.7-2.2) 01/14/19 20:01 Total Bilirubin 0.8 mg/dL (0.2-1.3) 01/14/19 20:01 AST 49 U/L (14-36) H 01/14/19 20:01 ALT 11 U/L (7-56) 01/14/19 20:01 Alkaline Phosphatase 67 U/L (38-126) 01/14/19 20:01 Troponin I < 0.01 ng/mL 01/14/19 20:01 Total Protein 7.6 g/dL (5.8-8.3) 01/14/19 20:01 Albumin 3.9 g/dL (3.0-4.8) 01/14/19 20:01 Globulin 3.7 gm/dL 01/14/19 20:01 Albumin/Globulin Ratio 1.1 (1.1-1.8) 01/14/19 20:01 Triglycerides 66 mg/dL (35-160) 01/14/19 20:01 Cholesterol 181 mg/dL (130-200) 01/14/19 20:01 LDL Cholesterol Direct 90 mg/dL (0-129) 01/14/19 20:01 HDL Cholesterol 64 mg/dL (29-60) H 01/14/19 20:01 Vitamin B12 400 pg/mL (239-931) 01/15/19 05:30 Folate 8.5 ng/mL 01/15/19 05:30 Free T4 1.21 ng/dL (0.78-2.19) 01/15/19 05:30 TSH 3rd Generation 2.19 mIU/mL (0.46-4.68) 01/15/19 05:30 Urine Color Yellow (YELLOW) 01/14/19 20:24 Urine Appearance Clear (CLEAR) 01/14/19 20:24 Urine pH 6.5 (4.7-8.0) 01/14/19 20:24 Ur Specific [place] 1.010 (1.005-1.035) 01/14/19 20:24 Urine Protein Negative mg/dL (<30 mg/dL) 01/14/19 20:24 Urine Glucose (UA) Negative mg/dL (NEGATIVE) 01/14/19 20:24 Urine Ketones 15 mg/dL (NEGATIVE) H 01/14/19 20:24 Urine Blood Large (NEGATIVE) H 01/14/19 20:24 Urine Nitrate Negative (NEGATIVE) 01/14/19 20:24 Urine Bilirubin Negative (NEGATIVE) 01/14/19 20:24 Urine Urobilinogen 0.2 E.U./dL (<1 E.U./dL) 01/14/19 20:24 Ur Leukocyte Esterase Negative Paco/uL (NEGATIVE) 01/14/19 20:24 Urine RBC 10 - 15 /hpf (0-2) H 01/14/19 20:24 Urine WBC 0 - 2 /hpf (0-6) 01/14/19 20:24 Ur Epithelial Cells 0 - 2 /hpf (0-5) 01/14/19 20:24 Urine Bacteria Few /hpf (NONE) 01/14/19 20:24 Attending/Attestation - Attestation I have personally seen and examined this patient.: Yes I have fully participated in the care of the patient.: Yes I have reviewed all pertinent clinical information, including history, physical exam and plan: Yes Notes (Text): 01/16/19 16:55 Attending note; patient seen and examined with resident. Patient is alert and awake. Denies any numbness or weakness. Denies any headache or dizziness. Tolerating diet well Ambulating fine. Patient is a 48-year-old female with PMH of vertigo, palpitations, PTSD presents to ED with complaints of L sided facial numbness and tingling sensation x2 days. 1. Left-sided arm and facial numbness. Currently resolved. CT head is negative . MRI is negative. No focal weakness noted. neurology evaluation appreciated. Patient will be discharged home. 2. PTSD; patient does not take any medication. Follows up with psychotherapy . Discharge home today. Follow-up with PMD Dr. Mariscal.
--- NOTE | 2019-01-15 15:51 | CARD ---
APPROVED REPORT Date of service: 01/14/2019 EKG Measurement Heart [id number] <Conclusion> Sinus bradycardia Otherwise normal ECG
[2019-01-15 16:20] VITALS: BP 104/65; PULSE 64; RESP 16; TEMP 98.9; O2SAT 97
== END 2019-01-15 19:46 | disposition home or self-care (01) ==
LOC: ED 18:10 → ERH 22:29 → 3RNO 23:45
PROVIDERS: ADMIT Internal Medicine; ATTEND Internal Medicine
DX: R20.2 Paresthesia of skin (principal); I10 Essential (primary) hypertension; F43.10 Post-traumatic stress disorder, unspecified; F17.290 Nicotine dependence, other tobacco product, uncomplicated; Z79.82 Long term (current) use of aspirin
CPT/HCPCS: 36415; 70450; 70551; 71045; 80053; 80061; 81001; 81025; 82607; 82746; 83036; 83735; 84439; 84443; 84484; 85025; 85610; 85730; 93005; 96360; 97116; 97161; 99285; G0378; G8978; G8979; G8980; J7030